=== PATIENT | female | born 1955 ===

== ENCOUNTER 2019-03-27 08:00 | Inpatient (IN) | payer OTHER ==
[~2019-03-27] VITALS: Ht 170.2 cm; Wt 145.1 kg
[~2019-03-27 08:00] MED LIST: ATORVASTATIN CA40 MG PO; CARVEDILOL6.25 MG PO; COZAAR100 MG PO; ELIQUIS5 MG PO; INDAPAMIDE1.25 MG PO; INTEGRA PLUS C1 EACH PO; NORVASC5 MG PO; OXYC1TAB9 PO; POM (MEDICAMENTO EN PO
[2019-04-03] MEDS ORDERED: ELIQUIS5 MG PO (08:27)
[2019-04-03] MEDS ORDERED: INTEGRA PLUS C1 EACH PO (08:27)
[2019-04-03] MEDS ORDERED: BACTRIM DS TAB1 EACH PO (08:27)
[2019-04-03] MEDS ORDERED: OXYC1TAB9 PO (08:27)
== END 2019-04-03 14:57 | disposition home or self-care (01) | DRG 470 ==
LOC: O/R 08:00 → SURH 03-31 08:19 → O/R 03-31 10:45 → SURH 03-31 21:59 → SURG 04-02 19:15 → SURH 04-02 19:57
PROVIDERS: ADMIT Orthopaedic Surgery Sports Medicine
PROC: 0SRD0J9 Replacement of Left Knee Joint with Synthetic Substitute, Cemented, Open Approach (ICD-10-PCS; principal; 2019-03-31 10:45)
DX: M17.12 Unilateral primary osteoarthritis, left knee (principal); D62 Acute posthemorrhagic anemia; I10 Essential (primary) hypertension; I49.8 Other specified cardiac arrhythmias; E66.09 Other obesity due to excess calories; G47.33 Obstructive sleep apnea (adult) (pediatric)

== ENCOUNTER 2019-03-31 07:41 | Outpatient (CLI) | payer OTHER | END 2019-03-31 07:47 | disposition home or self-care (01) | LOC: LAB 07:41 | DX: D68.8 Other specified coagulation defects (principal); Z01.812 Encounter for preprocedural laboratory examination ==

== ENCOUNTER 2022-03-11 13:12 | Inpatient (IN) | payer OTHER ==
[~2022-03-11] VITALS: Ht 170.2 cm; Wt 157.9 kg
[~2022-03-11 13:12] MED LIST changes: +BACTRIM DS TAB1 EACH PO
[2022-03-11] MEDS ORDERED: VERELAN240 MG PO (13:25)
[2022-03-11] MEDS ORDERED: VASOTEC2.5 MG PO (13:26)
[2022-03-11] MEDS ORDERED: ARNUITY ELLIPT50 MCG IH (13:28)
[2022-03-11] MEDS ORDERED: VASOFLEX D1 CA1 EACH PO (13:29)
[2022-03-11] MEDS ORDERED: CARVEDILOL ER40 MG PO (13:29)
[2022-03-11] MEDS ORDERED: WIXELA 250-501 EACH IH (13:29)
[2022-03-11] MEDS ORDERED: METFORMIN HCL850 M1 PO (13:30)
[2022-03-13] MEDS ORDERED: DERMOPLAST PAIN78 GM (11:02)
[2022-03-13] MEDS ORDERED: ADVIL PM CAPLE1 EACH (11:02)
[2022-03-13] MEDS ORDERED: FLONASE16 GM (11:02)
[2022-03-13] MEDS ORDERED: MONTELUKAST SOD10 MG (11:03)
[2022-03-13] MEDS ORDERED: CARVEDILOL6.25 M1 (11:03)
[2022-03-13] MEDS ORDERED: GABAPENTIN300 M2 (11:03)
[2022-03-13] MEDS ORDERED: VOLTAREN ARTHRI20 GM (11:03)
[2022-03-13] MEDS ORDERED: VASOFLEX TABLE1 EACH (11:03)
[2022-03-13] MEDS ORDERED: AMLODIPINE BESYL5 MG (11:03)
[2022-03-13] MEDS ORDERED: TUMS300 MG (11:05)
[2022-03-13] MEDS ORDERED: BENADRYL ALLERG25 MG (11:05)
[2022-03-13] MEDS ORDERED: ALKA-SELTZER O1 EACH (11:05)
[2022-03-13] MEDS ORDERED: ADVIL DUAL ACT1 EACH (11:05)
== END 2022-03-21 17:06 | disposition home or self-care (01) | DRG 291 ==
LOC: ER 13:12 → SEC-K 22:12 → MEDI 22:12
PROVIDERS: ADMIT Internal Medicine; ATTEND Internal Medicine
PROC: B246ZZZ Ultrasonography of Right and Left Heart (ICD-10-PCS; principal; 2022-03-11)
PROC: 4A12X4Z Monitoring of Cardiac Electrical Activity, External Approach (ICD-10-PCS; 2022-03-11)
PROC: 3E0F7GC Introduction of Other Therapeutic Substance into Respiratory Tract, Via Natural or Artificial Opening (ICD-10-PCS; 2022-03-11)
PROC: 3E0F7SF Introduction of Other Gas into Respiratory Tract, Via Natural or Artificial Opening (ICD-10-PCS; 2022-03-11)
DX: I11.0 Hypertensive heart disease with heart failure (principal); J18.9 Pneumonia, unspecified organism; Z68.43 Body mass index [BMI] 50.0-59.9, adult; I50.813 Acute on chronic right heart failure; J44.9 Chronic obstructive pulmonary disease, unspecified; I48.91 Unspecified atrial fibrillation; K59.00 Constipation, unspecified; G47.33 Obstructive sleep apnea (adult) (pediatric); E66.01 Morbid (severe) obesity due to excess calories; Z20.822 Contact with and (suspected) exposure to COVID-19